=== PATIENT | female | born 2000 | race Hispanic/Latino ===

== ENCOUNTER 2021-10-12 09:38 | Day surgery (SDC) | payer OTHER ==
[2021-10-12 10:06] VITALS: BMI 39.6
== END 2021-10-12 10:45 | disposition home or self-care (01) ==
LOC: CSHLD/OP 09:38
PROVIDERS: ATTEND Family Medicine
DX: O26.892 Other specified pregnancy related conditions, second trimester (principal); R10.30 Lower abdominal pain, unspecified; M54.50 Low back pain, unspecified; Z3A.22 22 weeks gestation of pregnancy
CPT/HCPCS: 99282

== ENCOUNTER 2021-11-30 14:45 | Day surgery (SDC) | payer OTHER ==
[2021-11-30 16:04] VITALS: BMI 39.3
[2021-11-30] MEDS ORDERED: hydrALAZINE 20 MG/ML VIAL SLOW IVP PRN (16:14)
[2021-11-30 16:45] LABS: Bilirubin Neg (Negative); Blood, Urine Negative (Negative); Clarity Clear (Clear); Glucose, Urine (Dipstick) Normal (Negative); Ketone, Urine 5 mg/dL (Negative); Leukocyte Negative (Negative); Nitrite Negative (Negative); Protein, Urine (Dipstick) 15 mg/dl (Neg-Trace); Urobilinogen Normal mg/dL (Less than 2)
[2021-11-30 16:53] LABS: Urine Culture Reflex No No
[2021-11-30 17:50] LABS: Bacteria/HPF Rare-Few HPF (None Seen); Epithelial Cast 0-3 LPF (None Seen); RBC/HPF 0-3 HPF (0-3); Squamous Epithelial 0-3 HPF (0-3); WBC/HPF 0-3 HPF (0-3)
== END 2021-11-30 18:10 | disposition home or self-care (01) ==
LOC: CSHLD/OP 14:45
PROVIDERS: ATTEND Family Medicine
DX: O26.893 Other specified pregnancy related conditions, third trimester (principal); R10.9 Unspecified abdominal pain; Z3A.29 29 weeks gestation of pregnancy; Z87.59 Personal history of other complications of pregnancy, childbirth and the puerperium
CPT/HCPCS: 81001; 99283

== ENCOUNTER 2021-12-30 14:55 | Day surgery (SDC) | payer OTHER ==
[2021-12-30] MEDS ORDERED: hydrALAZINE 20 MG/ML VIAL SLOW IVP PRN (16:01)
== END 2021-12-30 16:45 | disposition home or self-care (01) ==
LOC: CSHLD/OP 14:55
PROVIDERS: ATTEND Family Medicine
DX: O26.893 Other specified pregnancy related conditions, third trimester (principal); R10.9 Unspecified abdominal pain; Z3A.33 33 weeks gestation of pregnancy; Z79.899 Other long term (current) drug therapy; Z98.890 Other specified postprocedural states
CPT/HCPCS: 99282

== ENCOUNTER 2022-01-01 00:04 | Inpatient (IN) | payer OTHER ==
[2022-01-01 00:22] VITALS: BMI 40.4
[2022-01-01] MEDS ORDERED: hydrALAZINE 20 MG/ML VIAL SLOW IVP PRN ×2 (00:25→04:35)
[2022-01-01 02:54] LABS: Bilirubin Neg (Negative); Blood, Urine Negative (Negative); CAUTI Indications for Culture Dysuria,urgency,freq; Clarity Slightly Cloudy (Clear); Glucose, Urine (Dipstick) Normal (Negative); Ketone, Urine Negative (Negative); Leukocyte Negative (Negative); Nitrite Negative (Negative); Protein, Urine (Dipstick) Negative (Neg-Trace); Specific Gravity, Urine 1.015 (1.005-1.030); Urobilinogen Normal mg/dL (Less than 2)
[2022-01-01 02:58] LABS: Urine Culture Reflex No No
[2022-01-01 03:02] LABS: Bacteria/HPF 2+ HPF (None Seen); RBC/HPF None Seen HPF (0-3); Squamous Epithelial 0-3 HPF (0-3); WBC/HPF 0-3 HPF (0-3)
[2022-01-01] MEDS ORDERED: Promethazine HCl 25 MG/ML VIAL IM PRN (04:35)
[2022-01-01] MEDS ORDERED: Ondansetron PF 4 MG/2 ML Vial IVP PRN (04:35)
[2022-01-01] MEDS ORDERED: Acetaminophen 500 MG TAB PO PRN (04:36)
[2022-01-01] MEDS ORDERED: Sodium Chloride 0.9% 1,000 ML IV SCH (04:45)
[2022-01-01] MEDS: Betamet Acet/Betamet Na Ph 30 MG/5 ML VIAL IM SCH (04:57)
[2022-01-01] MEDS: valACYclovir 500 MG TAB PO SCH ×2 (04:58→20:53)
[2022-01-01] MEDS ORDERED: NIFEdipine 10 MG CAP PO SCH (05:00)
[2022-01-01] MEDS: cefTRIAXone\\ROCEPHIN 1 GM in Sodium Chloride 0.9% 100 ML IVPB SCH (05:00)
[2022-01-01 06:41] LABS: Hemoglobin 10.8 g/dL (12.0-15.5); Mean Corpuscular HGB CONC 32.3 g/dL (32.0-36.0); Mean Corpuscular Hemoglobin 23.6 pg (27.0-33.0); Mean Corpuscular Volume 73.1 fl (81.6-98.3); Mean Platelet Volume 11.7 fl (7.4-10.4); Platelet Count 311 10x3/uL (150-450); RBC Distribution Width 15.7 % (11.5-14.5); Red Blood Cell (RBC) Count 4.57 10x6/uL (3.90-5.03); White Blood Cell (WBC) Count 10.3 10x3/uL (3.5-10.5)
[2022-01-01 07:00] LABS: Syphilis Antibody Nonreactive (Nonreactive); Syphilis Antibody Index 0.06 S/CO (<1.00 Non-Reactive)
[2022-01-01 07:01] LABS: HBSAg Index 0.16 S/CO (0-0.99); Hep B Surf Ag Non-Reactive S/CO (NonReactive)
[2022-01-01] MEDS: NIFEdipine 10 MG CAP PO SCH ×4 (09:11→20:52)
[2022-01-01 10:40] LABS: SARS-CoV-2 NAA Rapid Test Not Detected (NotDetected)
[2022-01-02] MEDS: NIFEdipine 10 MG CAP PO SCH ×2 (01:30→08:41)
[2022-01-02] MEDS ORDERED: Terbutaline Sulfate 1 MG/ML VIAL ONE (02:05)
[2022-01-02] MEDS ORDERED: Ampicillin 2 GM VIAL ONE (02:11)
[2022-01-02] MEDS ORDERED: Terbutaline Sulfate 1 MG/ML VIAL SC SCH (02:15)
[2022-01-02] MEDS ORDERED: Ampicillin 2 GM in Sodium Chloride 0.9% 100 ML IVPB SCH (03:00)
[2022-01-02] MEDS ORDERED: CEFAZOLIN 2 GM VIAL ONE (03:20)
[2022-01-02] MEDS ORDERED: Azithromycin 500 MG VIAL ONE (03:21)
[2022-01-02] MEDS ORDERED: Morphine PF 10 MG/10 ML VIAL ONE (03:38)
[2022-01-02] MEDS ORDERED: Oxytocin 10 UNITS/ML VIAL ONE (03:38)
[2022-01-02] MEDS ORDERED: PHENYLEPHRINE-NS 100 MCG/ML 10 ML SYRINGE ONE (03:38)
[2022-01-02] MEDS ORDERED: Ondansetron PF 4 MG/2 ML Vial ONE (04:00)
[2022-01-02] MEDS ORDERED: Fentanyl 100 MCG/2 ML VIAL ONE (04:14)
[2022-01-02] MEDS ORDERED: Midazolam HCl 2 mg/2 ml Vial ONE (04:15)
[2022-01-02] MEDS ORDERED: Naloxone HCl 0.4 mg/ml Vial IV PRN (04:34)
[2022-01-02] MEDS ORDERED: Meperidine HCl/PF 25 MG/ML VIAL SLOW IVP PRN (04:34)
[2022-01-02] MEDS ORDERED: Ondansetron PF 4 MG/2 ML Vial IVP PRN ×2 (04:34→08:28)
[2022-01-02] MEDS ORDERED: Naloxone HCl 0.4 mg/ml Vial IVP PRN ×2 (04:34)
[2022-01-02] MEDS ORDERED: Fentanyl 100 MCG/2 ML VIAL SLOW IVP PRN (04:34)
[2022-01-02] MEDS ORDERED: Ketorolac Tromethamine 30 MG/ML VIAL IVP PRN (04:34)
[2022-01-02] MEDS ORDERED: Promethazine HCl 25 MG/ML VIAL IM PRN ×2 (04:34→08:28)
[2022-01-02] MEDS ORDERED: Promethazine HCl 25 MG SUPP PR PRN (04:34)
[2022-01-02] MEDS ORDERED: Moisturizing Cream (Eucerin) 113 GM JAR TOP PRN (04:34)
[2022-01-02] MEDS ORDERED: Ondansetron HCl/PF 4 MG/2 ML Vial IVP PRN (04:34)
[2022-01-02] MEDS ORDERED: diphenhydrAMINE 50 MG/ML VIAL IVP PRN (04:34)
[2022-01-02] MEDS ORDERED: Ketorolac Tromethamine 30 MG/ML VIAL IVP SCH (04:45)
[2022-01-02] MEDS ORDERED: Communication Order-Pharmacy FS SCH (04:45)
[2022-01-02] MEDS ORDERED: Boostrix 0.5 ML (Tdap) VIAL (>/=7 yrs of age) IM ONE (08:28)
[2022-01-02] MEDS ORDERED: Meperidine HCl/PF 25 MG/ML VIAL IM PRN (08:28)
[2022-01-02] MEDS ORDERED: diphenhydrAMINE 25 MG CAP PO PRN (08:28)
[2022-01-02] MEDS ORDERED: hydrALAZINE 20 MG/ML VIAL SLOW IVP PRN (08:28)
[2022-01-02] MEDS ORDERED: Lanolin Ointment 7 GM TUBE TOP PRN (08:28)
[2022-01-02] MEDS ORDERED: Bisacodyl 10 MG SUPP PR PRN (08:28)
[2022-01-02] MEDS ORDERED: Simethicone Chewable 80 MG TAB PO PRN (08:28)
[2022-01-02] MEDS: Betamet Acet/Betamet Na Ph 30 MG/5 ML VIAL IM SCH (08:40)
[2022-01-02] MEDS: cefTRIAXone\\ROCEPHIN 1 GM in Sodium Chloride 0.9% 100 ML IVPB SCH (08:41)
[2022-01-02] MEDS: Docusate 100 MG CAP PO SCH ×2 (09:06→23:09)
[2022-01-02] MEDS: Prenatal Vitamin 1 TAB PO SCH (09:06)
[2022-01-02] MEDS: Ferrous Sulfate 325 MG TAB PO SCH ×2 (09:06→23:10)
[2022-01-02] MEDS: Ketorolac Tromethamine 30 MG/ML VIAL IVP SCH ×3 (11:23→23:09)
[2022-01-02] MEDS: HYDROcodone/Acetaminophen 5/325 mg Tablet PO PRN (16:41)
[2022-01-03 04:46] LABS: Hemoglobin 9.6 g/dL (12.0-15.5); Mean Corpuscular HGB CONC 31.4 g/dL (32.0-36.0); Mean Corpuscular Hemoglobin 23.1 pg (27.0-33.0); Mean Corpuscular Volume 73.6 fl (81.6-98.3); Mean Platelet Volume 10.7 fl (7.4-10.4); Platelet Count 272 10x3/uL (150-450); RBC Distribution Width 15.8 % (11.5-14.5); Red Blood Cell (RBC) Count 4.16 10x6/uL (3.90-5.03); White Blood Cell (WBC) Count 11.7 10x3/uL (3.5-10.5)
[2022-01-03] MEDS: Ibuprofen 800 MG TAB PO SCH ×3 (05:46→21:34)
[2022-01-03] MEDS: Ferrous Sulfate 325 MG TAB PO SCH ×2 (08:09→21:33)
[2022-01-03] MEDS: Docusate 100 MG CAP PO SCH ×2 (08:09→21:34)
[2022-01-03] MEDS: HYDROcodone/Acetaminophen 5/325 mg Tablet PO PRN ×4 (08:10→19:38)
[2022-01-03] MEDS: Prenatal Vitamin 1 TAB PO SCH (08:10)
[2022-01-04] MEDS: Ibuprofen 800 MG TAB PO SCH ×3 (05:53→22:08)
[2022-01-04] MEDS: HYDROcodone/Acetaminophen 5/325 mg Tablet PO PRN ×3 (07:26→19:51)
[2022-01-04] MEDS: Docusate 100 MG CAP PO SCH ×2 (09:53→19:51)
[2022-01-04] MEDS: Prenatal Vitamin 1 TAB PO SCH (09:53)
[2022-01-04] MEDS: Ferrous Sulfate 325 MG TAB PO SCH ×2 (09:53→22:08)
[2022-01-05] MEDS: Ibuprofen 800 MG TAB PO SCH ×2 (05:47→14:46)
[2022-01-05] MEDS: HYDROcodone/Acetaminophen 5/325 mg Tablet PO PRN ×2 (07:07→14:45)
[2022-01-05] MEDS: Ferrous Sulfate 325 MG TAB PO SCH (07:08)
[2022-01-05] MEDS: Docusate 100 MG CAP PO SCH (07:08)
[2022-01-05] MEDS: Prenatal Vitamin 1 TAB PO SCH (07:08)
[2022-01-05 16:34] VITALS: BP 115/60; TEMP 98.4
== END 2022-01-05 18:47 | disposition home or self-care (01) | DRG 787 ==
LOC: CSHLD/OP 00:04 → INTOOBSV 04:52 → CSHLD 04:52 → OBSVTOIN 01-02 04:00 → CSHPP 01-02 08:25
PROVIDERS: ADMIT Family Medicine; ATTEND Family Medicine
PROC: 10D00Z1 Extraction of Products of Conception, Low, Open Approach (ICD-10-PCS; principal; 2022-01-02)
DX: O60.14X0 Preterm labor third trimester with preterm delivery third trimester, not applicable or unspecified (principal); O98.52 Other viral diseases complicating childbirth; Z3A.33 33 weeks gestation of pregnancy; Z37.0 Single live birth; Z20.822 Contact with and (suspected) exposure to COVID-19; O34.211 Maternal care for low transverse scar from previous cesarean delivery; B00.9 Herpesviral infection, unspecified; E66.9 Obesity, unspecified; O99.214 Obesity complicating childbirth
CPT/HCPCS: 36415; 51702; 81001; 85027; 86780; 86850; 86900; 86901; 87081; 87086; 87340; 88307; 96374; 99285; G0378; J0290; J0696; J0702; J1885; J2250; J2274; J2405; J2590; J3010; J3105; J3490; U0002

== ENCOUNTER 2024-11-20 14:48 | Day surgery (SDC) | payer OTHER ==
[2024-11-20] MEDS ORDERED: hydrALAZINE 20 MG/ML VIAL SLOW IVP PRN (15:33)
== END 2024-11-20 18:20 | disposition home health service (06) ==
LOC: CSHLD/OP 14:48
PROVIDERS: ATTEND Family Medicine
DX: Z03.79 Encounter for other suspected maternal and fetal conditions ruled out (principal); O34.211 Maternal care for low transverse scar from previous cesarean delivery; Z3A.36 36 weeks gestation of pregnancy; Z67.40 Type O blood, Rh positive; Z79.899 Other long term (current) drug therapy
CPT/HCPCS: 99283

== ENCOUNTER 2024-11-24 15:12 | Day surgery (SDC) | payer OTHER ==
[2024-11-24] MEDS ORDERED: hydrALAZINE 20 MG/ML VIAL SLOW IVP PRN (15:47)
[2024-11-24 16:44] LABS: Fetal Membranes Rupture No Membranes Rupture (No Rupture)
== END 2024-11-24 18:00 | disposition home or self-care (01) ==
LOC: CSHLD/OP 15:12
PROVIDERS: ATTEND Obstetrics & Gynecology
DX: Z03.71 Encounter for suspected problem with amniotic cavity and membrane ruled out (principal); O34.211 Maternal care for low transverse scar from previous cesarean delivery; O99.213 Obesity complicating pregnancy, third trimester; Z3A.36 36 weeks gestation of pregnancy; Z67.40 Type O blood, Rh positive; Z79.899 Other long term (current) drug therapy
CPT/HCPCS: 84112; 87480; 87510; 87660; 99284